=== PATIENT | male | born 1950 | race Caucasian/White ===

== ENCOUNTER 2019-08-19 10:31 | Emergency (ER) | payer OTHER ==
[~2019-08-19 10:31] MED LIST: AEC81 PO; ASCO10007 PO; ATOR10TA69 PO; BACL20TA PO; CINN500C PO; CLON0.1T PO; GLYB1TAB30 PO; LISI-613 PO; LORA10TA7 PO; MOVE FREE ULTR1 EACH PO; MULT-1258 PO; OM-31CAP8 PO; OMEP20CA12 PO; OXYC10TA48 PO; TRAV2.5D OU; [UNRECOGNIZED DRUG - CODE] PO
[2019-08-19] MEDS ORDERED: MORPHINE SULFATE 2 MG/ML 1ML SYG ONE (11:16)
[2019-08-19] MEDS ORDERED: ONDANSETRON HCL 4 MG/2 ML VIAL ONE (11:16)
== END 2019-08-19 13:05 | disposition home or self-care (01) ==
LOC: EDH 10:31
DX: S42.102A Fracture of unspecified part of scapula, left shoulder, initial encounter for closed fracture (principal); S32.311A Displaced avulsion fracture of right ilium, initial encounter for closed fracture; E11.9 Type 2 diabetes mellitus without complications; I10 Essential (primary) hypertension; E03.9 Hypothyroidism, unspecified; X58.XXXA Exposure to other specified factors, initial encounter; Y93.55 Activity, bike riding; Y92.89 Other specified places as the place of occurrence of the external cause; Y99.8 Other external cause status
CPT/HCPCS: 70450; 71250; 72125; 73030; 96374; 96375; 99285; J2405

== ENCOUNTER → 2024-11-03 | Outpatient (CLI) | payer OTHER ==
[~2024-11-03] MED LIST changes: +ASCO100031 PO; -ASCO10007 PO; +GLYB-171 PO; -GLYB1TAB30 PO; -LISI-613 PO; +LISI20TA24 PO
--- NOTE | 2024-11-03 16:47 | HMCIMG ---
MR SPINAL CANAL, CERV WO CON HISTORY: No additional history given. COMPARISON: None TECHNIQUE: MRI of the cervical spine was performed utilizing multiple pulse sequences in axial, coronal and sagittal plane. Patient was not given contrast through intravenous route. FINDINGS: Orthopedic fixation plates and screws are seen traversing the L5 and L6 with paramagnetic susceptibility artifacts limiting aeration. No abnormal signal intensity is seen of the visualized bony structure. No loss of vertebral height is seen. There is straightening of normal lordotic cervical curvature which may be related to muscle spasm or positioning. Degenerative disc signals are present at all cervical spine levels. Cerebellar tonsils are in normal position. The cervical cord is of normal signal intensity without cord compression or impingement. At the C3-4 level, there is mild central disc protrusion/herniation with annular tear causing anterior CSF space effacement with bilateral lateral recess stenosis and minimal bilateral neural foraminal stenosis. The central canal measures approximately 8.7 mm in its anterior posterior dimension. At the C4-5 level, there is central disc protrusion causing anterior CSF space effacement with bilateral lateral recess stenosis and mild bilateral neural foraminal stenosis. The central canal measures approximately 8.3 mm in its anterior posterior dimension. At the C5-6 level, there is central disc protrusion causing anterior CSF space effacement with bilateral lateral recess stenosis and bilateral mild neural foraminal stenosis. The central canal measures approximately 5.3 mm in its anterior posterior dimension. At the C6-7 level, there is central disc protrusion causing anterior CSF space effacement with bilateral lateral recess stenosis and mild bilateral neural foraminal stenosis. The central canal measures approximately 5 mm in its anterior posterior dimension. IMPRESSION: 1. Degenerative cervical spine spondylosis as described above.
== END | disposition home or self-care (01) ==
LOC: RAH 13:08
PROVIDERS: ATTEND Internal Medicine
DX: M47.812 Spondylosis without myelopathy or radiculopathy, cervical region (principal); M50.223 Other cervical disc displacement at C6-C7 level; M50.222 Other cervical disc displacement at C5-C6 level; M50.221 Other cervical disc displacement at C4-C5 level; M48.02 Spinal stenosis, cervical region; G95.9 Disease of spinal cord, unspecified
CPT/HCPCS: 72141

== ENCOUNTER → 2024-12-28 | Outpatient (CLI) | payer OTHER ==
--- NOTE | 2024-12-28 10:27 | HMCIMG ---
MR SHOULDER LEFT WO HISTORY: Left shoulder pain COMPARISON: None TECHNIQUE: MRI of the left shoulder was performed utilizing multiple pulse sequences in axial, coronal and sagittal planes. Patient was not given contrast through intravenous route. FINDINGS: No abnormal signal intensity is seen of the visualized bony structure. Hypertrophic degenerative changes are seen of the acromioclavicular joint. There is downward sloping of acromion in a medial to lateral direction encroaching upon the rotator cuff tendon and muscles. There is rotator cuff tendinosis. Small amount of fluid is seen in the subacromial-subdeltoid bursa complex. The glenoid labrum is intact. Bicipital tendon is seen within its groove. No appreciable amount of joint effusion is seen. IMPRESSION: 1. Rotator cuff tendinosis with small amount of fluid is seen in the subacromial-subdeltoid bursa complex may be related to bursitis.
== END | disposition home or self-care (01) ==
LOC: RAH 07:29
PROVIDERS: ATTEND Neuromusculoskeletal Medicine & OMM
DX: M19.012 Primary osteoarthritis, left shoulder (principal); M67.814 Other specified disorders of tendon, left shoulder; M25.512 Pain in left shoulder
CPT/HCPCS: 73221

== ENCOUNTER 2025-02-20 08:00 | Observation (INO) | payer OTHER ==
[~2025-02-20] VITALS: Ht 190.5 cm; Wt 79.4 kg
[~2025-02-20 08:00] MED LIST changes: -ASCO100031 PO; +ASCO10004 PO
--- NOTE | 2025-02-20 08:10 | NUR ---
PATIENT REPORTS MAKING POLICE REPORT ALREADY WITH [facility]./DINESH
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
--- NOTE | 2025-02-20 09:12 | HMCIMG ---
EXAM: CR Chest, 1 View. CLINICAL HISTORY: left chest pain COMPARISON: None provided. FINDINGS: LUNGS: There is mild left basilar airspace disease that may reflect atelectasis and/or an infectious process. PLEURAL SPACES: No pleural effusion or pneumothorax.Skin folds overlie the bilateral hemithoraces. MEDIASTINUM: Cardiac size and mediastinal contours within normal limits. BONES: No acute osseous abnormality. IMPRESSION: 1. Left basilar airspace disease, possibly representing atelectasis and/or infection. /[place]
[2025-02-20] MEDS: NAPROXEN 500 MG TABLET PO ONE (09:15)
--- NOTE | 2025-02-20 09:44 | HMCIMG ---
EXAM: CR Thoracic Spine, 3 View. CLINICAL HISTORY: left chest pain COMPARISON: None provided. FINDINGS: BONES: No acute fracture or aggressive appearing osseous lesion. DISCS / DEGENERATIVE CHANGES: Thoracic spondylosis evident by small to moderate anterior osteophytes and syndesmophytes, more pronounced at T8-T10. Mild multilevel disc disease. SOFT TISSUES: The paraspinal soft tissue lines are unremarkable. The visualized lungs are clear. MISCELLANEOUS: Visualization of the upper thoracic spine is limited on the lateral view by overlying structures. IMPRESSION: 1. No acute osseous injury. 2. Thoracic spondylosis and mild multilevel disc disease. /[place]
[2025-02-20 10:10] LABS: IMMATURE GRANULOCYTE ABSOLUTE 0.05 K/uL (0-1); NUCLEATED RED BLOOD CELLS 0.0 % (0.0-0.19); PLATELET COUNT (AUTO) 175 K/uL (130-400); RED BLOOD CELL COUNT(AUTO) 4.75 MIL/uL (4.50-6.20); RED CELL DISTRIBUTION WIDTH 12.6 % (11.0-15.5); WHITE BLOOD COUNT (AUTO) 11.6 K/uL (4.8-10.8)
--- NOTE | 2025-02-20 10:27 | EKG ---
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
[2025-02-20 10:28] LABS: CREATININE 0.8 mg/dL (0.5-1.3); GLOMERULAR FILTR. RATE CALC 94.0 mL/min (>90); GLUCOSE,RANDOM 180.0 mg/dL (70-105); SODIUM SERUM 136.0 mmol/L (136-145); UREA NITROGEN, BLOOD 27.0 mg/dL (7-18)
--- NOTE | 2025-02-20 12:15 | HMCIMG ---
EXAM: CT Chest Without IV contrast. CLINICAL HISTORY: FALL TECHNIQUE: Axial computed tomography images of the chest without intravenous contrast. COMPARISON: Study dated 08/19/2019. FINDINGS: LUNGS: Dependent airway disease along bilateral lower lobes, presumed to represent basal atelectasis. No pulmonary mass. PLEURAL SPACES: Minimal left-sided pneumothorax. Minimal left-sided pleural effusion. HEART: No cardiomegaly. No significant pericardial effusion. LYMPH NODES: No lymphadenopathy is evident. UPPER ABDOMEN: A few hyperdense calculi in the neck of the gall bladder largest measuring 7.0 mm. Mild bilateral perinephric fat stranding is concerning for renal parenchymal disease. BONES: Linear, mildly displaced fracture of the posterolateral aspect of the left 6th rib. Degenerative changes in the visualized spine. IMPRESSION: 1. Minimal left-sided pneumothorax and small left pleural effusion. 2. Mildly displaced fracture of the left 6th rib. /[place]
--- NOTE | 2025-02-20 12:21 | NUR ---
DR. CEVALLOS CALLED AT THIS TIME FOR DR. BAEZA./[place]
[2025-02-20] MEDS ORDERED: IOHEXOL-350 75 ML VIAL IV ONE (13:14)
--- NOTE | 2025-02-20 14:33 | HMCIMG ---
EXAM: CT Abdomen and Pelvis with IV contrast CLINICAL HISTORY: FALL TECHNIQUE: Axial computed tomography images of the abdomen and pelvis with intravenous contrast. CONTRAST: with intravenous contrast. COMPARISON: None provided. FINDINGS: LUNG BASES: Limited views of the lung bases demonstrate a small left basilar/anterior pneumothorax less than 5% and dependent airspace disease. Partially imaged mildly displaced fracture at the posterior, lateral aspect of the left sixth rib. Trace left pleural effusion LIVER: Partial atrophy of left lobe is seen. No focal lesion seen. GALLBLADDER AND BILE DUCTS: Two small calculi largest measuring 7 mm in lumen in neck region. No signs of cholecystitis. No biliary ductal dilatation is evident. PANCREAS: Unremarkable. SPLEEN: Unremarkable. ADRENAL GLANDS: Unremarkable. KIDNEYS, URETERS, AND BLADDER: The kidneys appear within normal limits. There is no hydronephrosis or hydroureter. No urinary calculi are seen. Perinephric fat hypertrophy and mild perinephric fat stranding is seen bilaterally. Recommend correlation with renal function test. STOMACH AND BOWEL: Unremarkable appearance of the stomach and bowel. No evidence of bowel obstruction. No evidence suggesting enteritis or colitis. APPENDIX: No evidence of acute appendicitis on CT examination. PERITONEUM: No free fluid. No free air. LYMPH NODES: No lymphadenopathy is evident. REPRODUCTIVE: Unremarkable as visualized. VASCULATURE: No evidence of abdominal aortic aneurysm. BONES: In the abdomen and pelvis- No aggressive appearing osseous lesion. No acute osseous pathology evident. Degenerative changes in visualised spine seen. Lumbosacral transitional vertebra is seen. IMPRESSION: 1. No acute intraabdominal or pelvic pathology. 2. Cholelithiasis, largest calculus measuring 7 mm, without signs of cholecystitis. 3. Bilateral perinephric fat stranding. Recommend correlation with renal function test. /[place]
--- NOTE | 2025-02-20 16:45 | NUR ---
DCP:HOME Pt currently lives with dwight Wang [phone]. Pt does not use any DME, home health, or provider services. Pt states that he is able to complete ADLs independently. PCP is Dr. Barbour and uses [facility] for any RX needs. At [place] pt will go home and family will assist with transportation. Addendum: 02/20/25 at 1646 by TAZ MALLORY SS Amended: Links added.
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
--- NOTE | 2025-02-20 17:25 | NUR ---
REPORT GIVEN TO JAMES RN, ROOM 227
[2025-02-20] MEDS ORDERED: LEVO25CA5 PO (18:25)
[2025-02-20] MEDS ORDERED: ASCO500T19 PO (18:25)
[2025-02-20] MEDS ORDERED: AMLO2.5T4 PO (18:25)
[2025-02-20] MEDS ORDERED: INSU3INS3 SQ (18:25)
[2025-02-20] MEDS ORDERED: REPA0.5T12 PO (18:25)
[2025-02-20] MEDS ORDERED: OMEP20CA12 PO (18:25)
[2025-02-20] MEDS ORDERED: SITA1TBM4 PO (18:25)
[2025-02-20] MEDS ORDERED: ZINC220T4 PO (18:25)
[2025-02-20] MEDS ORDERED: CELE-146 PO (18:25)
[2025-02-20] MEDS ORDERED: CYAN25002 SL (18:25)
[2025-02-20] MEDS ORDERED: GABA-1405 PO (18:25)
[2025-02-20] MEDS ORDERED: LEVO50CA5 PO (18:25)
[2025-02-20] MEDS ORDERED: L.AC1CAP6 PO (18:25)
[2025-02-20] MEDS ORDERED: LEVO-70 PO (18:25)
[2025-02-20] MEDS ORDERED: NON-FORMULARY MEDICATION 1 EACH (Levothyroxine Sodium (Levothyroxine) 1 CAP) PO SCH ×2 (18:30)
[2025-02-20 18:37] VITALS: BP 150/88; PULSE 67; RESP 18; TEMP 97.8
[2025-02-20 18:43] VITALS: O2SAT 98
[2025-02-20] MEDS ORDERED: CYCLOBENZAPRINE HCL 10 MG TABLET PO PRN (19:00)
[2025-02-20] MEDS ORDERED: DEXTROSE 50%-WATER 50 ML DISP.SYRIN IV PRN (19:00)
[2025-02-20] MEDS ORDERED: GLUCAGON 1MG KIT 1 MG ML IM PRN (19:00)
[2025-02-20 19:26] VITALS: BP 121/76; PULSE 66; RESP 18; TEMP 98.2
--- NOTE | 2025-02-20 19:30 | NUR ---
PT AWAKE, ALERT, AND ORIENTED. DENIES CHEST PAIN OR DISCOMFORT. DENIES LABORED RESPIRATIONS OR SHORTNESS OF BREATH. DENIES HEADACHE, NO BLURRED VISION OR VERTIGO. PT ON ROOM AIR, TELEMETRY MONITORING. CALL LIGHT WITHIN REACH, BED ALARM ON .
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
[2025-02-20 20:00] VITALS: O2SAT 95
[2025-02-20] MEDS: GABAPENTIN 300 MG CAPSULE PO SCH (20:57)
[2025-02-20] MEDS: LISINOPRIL 40 MG TABLET PO SCH (20:57)
[2025-02-20] MEDS: TRAVOPROST OU SCH (21:00)
[2025-02-20] MEDS ORDERED: REPAGLINIDE PO SCH (21:00)
[2025-02-20] MEDS ORDERED: METFORMIN HCL PO SCH (21:00)
[2025-02-20] MEDS: 0.9%NACL 1000ML 1,000 ML IV SCH (21:00)
[2025-02-20] MEDS ORDERED: FAMOTIDINE 20MG TAB PO SCH (21:00)
[2025-02-20] MEDS ORDERED: SITAGLIPTIN PHOS PO SCH (21:00)
[2025-02-20] MEDS: LIDOCAINE 4% ADH..PATCH TP SCH (21:02)
[2025-02-21 01:03] VITALS: BP 128/76; PULSE 62; RESP 18; TEMP 97.8
[2025-02-21 04:00] LABS: IMMATURE GRANULOCYTE ABSOLUTE 0.02 K/uL (0-1); NUCLEATED RED BLOOD CELLS 0.0 % (0.0-0.19); PLATELET COUNT (AUTO) 159 K/uL (130-400); RED BLOOD CELL COUNT(AUTO) 4.16 MIL/uL (4.50-6.20); RED CELL DISTRIBUTION WIDTH 12.6 % (11.0-15.5); WHITE BLOOD COUNT (AUTO) 6.9 K/uL (4.8-10.8)
[2025-02-21 04:25] LABS: ASPARTATE AMINOTRANSFERASE 17.0 U/L (10-37); CREATININE 0.9 mg/dL (0.5-1.3); GLOMERULAR FILTR. RATE CALC 91.0 mL/min (>90); GLUCOSE,RANDOM 125.0 mg/dL (70-105); SODIUM SERUM 137.0 mmol/L (136-145); TOTAL PROTEIN, SERUM 5.8 g/dL (6.0-8.3); UREA NITROGEN, BLOOD 24.0 mg/dL (7-18)
[2025-02-21 04:33] VITALS: BP 123/77; PULSE 60; RESP 18; TEMP 97.6
[2025-02-21 08:11] VITALS: BP 127/76; PULSE 71; RESP 18; TEMP 97.8
[2025-02-21] MEDS ORDERED: LIDOCAINE 4% ADH..PATCH TP SCH (09:00)
[2025-02-21] MEDS ORDERED: LISINOPRIL 40 MG TABLET PO SCH (09:00)
[2025-02-21] MEDS: EPA PO SCH (09:00)
[2025-02-21] MEDS: THIAMINE HCL 100 MG TABLET PO SCH (09:00)
[2025-02-21] MEDS: VIT D3 PO SCH (09:00)
[2025-02-21] MEDS: [UNRECOGNIZED DRUG - OTHER] PO SCH (09:00)
[2025-02-21] MEDS: DHA PO SCH (09:00)
[2025-02-21] MEDS: FISH OIL PO SCH (09:00)
[2025-02-21] MEDS: MULTIVITAMIN TABLET PO SCH (10:44)
[2025-02-21] MEDS: ASCORBIC ACID 500 MG TAB PO SCH (10:44)
[2025-02-21] MEDS: amLODIPine 2.5 MG TAB PO SCH (10:44)
[2025-02-21 10:50] VITALS: O2SAT 98
[2025-02-21] MEDS: ENOXAPARIN SODIUM 40 MG/0.4 ML SYRINGE SQ SCH (10:57)
[2025-02-21 12:11] VITALS: BP 124/7; PULSE 77; RESP 18; TEMP 98
[2025-02-21 15:39] VITALS: BP 121/79; PULSE 70; RESP 18; TEMP 97.6
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
--- NOTE | 2025-02-21 18:10 | NUR ---
DISCHARGE Discharge instructions given to patient and patient's spouse. Both verbalized knowledge and understanding. Patient escorted via wheelchair by AMINAH Broderick. Patient discharged now at 1810.
--- NOTE | 2025-02-21 23:22 | HMCIMG ---
EXAM: CR Chest, single view CLINICAL HISTORY: Minimal left pneumothorax COMPARISON: Prior chest radiograph dated 20 February 2025. FINDINGS: Linear fibrotic band in the right lower lobe. The lungs show no infiltrate or other acute findings. No pleural effusion or pneumothorax. The cardiomediastinal silhouette is within normal limits. No acute osseous abnormality. IMPRESSION: Linear fibrotic band in the right lower lobe. No acute cardiopulmonary pathology is evident. No evidence of pneumothorax. Compared to the prior study, there is an interval resolution of the subsegmental atelectasis in the left lower lobe. /[place]
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
== END 2025-02-21 18:20 | disposition still patient (30) ==
LOC: EDH 08:00 → INTOOBSV 14:42 → EDHIP 14:42 → 2DH 18:00
PROVIDERS: ADMIT Surgery; ATTEND Surgery
DX: S27.0XXA Traumatic pneumothorax, initial encounter (principal); S22.32XA Fracture of one rib, left side, initial encounter for closed fracture; D72.829 Elevated white blood cell count, unspecified; E03.9 Hypothyroidism, unspecified; E11.9 Type 2 diabetes mellitus without complications; I10 Essential (primary) hypertension; E78.5 Hyperlipidemia, unspecified; K21.9 Gastro-esophageal reflux disease without esophagitis; G62.9 Polyneuropathy, unspecified; M47.814 Spondylosis without myelopathy or radiculopathy, thoracic region; Z79.4 Long term (current) use of insulin; Z98.1 Arthrodesis status; Z79.899 Other long term (current) drug therapy; Z98.890 Other specified postprocedural states; V18.4XXA Pedal cycle driver injured in noncollision transport accident in traffic accident, initial encounter; Y93.55 Activity, bike riding; Y92.89 Other specified places as the place of occurrence of the external cause; Y99.8 Other external cause status
CPT/HCPCS: 96372 ×2; 96360; 96361 ×2; 84484; 80048; 85025 ×2; 82948 ×4; 36415 ×2; 71045 ×2; 72072; 71250; 74177; 99291; 93005; 83036; 84443; 83735; 80053; 97116; 97530 ×2; J1885; Q9967; G0378 ×3; J1650; J1815